=== PATIENT | female | born 1995 | race Caucasian/White ===

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

== ENCOUNTER 2018-12-18 22:44 | Emergency (ER) | payer OTHER ==
[~2018-12-18] VITALS: Ht 165.1 cm; Wt 97.7 kg
[2018-12-18 22:44] VITALS: BP 145/74
[2018-12-18] MEDS ORDERED: MOTR200T44 PO (22:51)
[2018-12-18] MEDS ORDERED: ACET-683 PO (22:51)
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
== END 2018-12-18 23:50 | disposition home or self-care (01) ==
LOC: M ED 22:44
DX: S00.83XA Contusion of other part of head, initial encounter (principal); S80.211A Abrasion, right knee, initial encounter; Y04.8XXA Assault by other bodily force, initial encounter; Y92.89 Other specified places as the place of occurrence of the external cause

== ENCOUNTER → 2019-07-12 | Outpatient (CLI) | payer BC ==
[~2019-07-12] MED LIST: ACET-683 PO; MOTR200T44 PO
[2019-07-12 17:48] LABS: HEMOGLOBIN A1c 5.3 %
== END ==
LOC: M SMT 13:52
PROVIDERS: ATTEND Obstetrics & Gynecology
DX: E28.2 Polycystic ovarian syndrome (principal); N93.9 Abnormal uterine and vaginal bleeding, unspecified

== ENCOUNTER → 2019-07-28 | Outpatient (CLI) | payer BC ==
[~2019-07-28] MED LIST changes: +CONRAY-43 43% 50ML VIAL (Q9960) As Ordered ONE; +ISOVUE-370 76% 100ML VIAL (Q9967) As Ordered ONE
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
== END ==
LOC: M RADPRO 11:53
PROVIDERS: ATTEND Obstetrics & Gynecology
DX: N97.9 Female infertility, unspecified (principal)
CPT/HCPCS: 58340; 74740; Q9967

== ENCOUNTER 2019-09-13 18:41 | Emergency (ER) | payer BC ==
[~2019-09-13] VITALS: Ht 165.1 cm; Wt 102.7 kg
[~2019-09-13 18:41] MED LIST changes: -CONRAY-43 43% 50ML VIAL (Q9960) As Ordered ONE; -ISOVUE-370 76% 100ML VIAL (Q9967) As Ordered ONE
[2019-09-13] MEDS ORDERED: LETR2.5T2 (18:48)
[2019-09-13] MEDS ORDERED: LIDOCAINE 1% SDV 5 ML VIAL DILUENT ONE (20:30)
[2019-09-13] MEDS ORDERED: AZITHROMYCIN 250 MG TAB PO ONE (20:30)
[2019-09-13] MEDS ORDERED: METOCLOPRAMIDE 10 MG TAB PO ONE (20:30)
[2019-09-13] MEDS ORDERED: cefTRIAXone SOD 250 MG VIAL (J0696) IM ONE (20:30)
[2019-09-13] MEDS ORDERED: FLAG500T PO ×2 (20:53→21:11)
[2019-09-13 20:57] VITALS: BP 144/80
[2019-09-13 21:52] LABS: CHLAMYDIA DNA AMPLIFICATION NEGATIVE (NEGATIVE); GC DNA AMPLIFICATION NEGATIVE (NEGATIVE)
[2019-09-16 09:59] LABS: HEPATITIS B SURFACE ANTIBODY NEGATIVE (POSITIVE); HEPATITIS B SURFACE ANTIGEN NEGATIVE (NEGATIVE); HEPATITIS C VIRUS ABY INDEX 0.2 INDEX (<0.8); HIV 1&2 SCREEN CENTAUR NEGATIVE (NEGATIVE)
== END 2019-09-13 21:14 | disposition home or self-care (01) ==
LOC: M ED 18:41
DX: T76.21XA Adult sexual abuse, suspected, initial encounter (principal); N76.0 Acute vaginitis; E28.2 Polycystic ovarian syndrome; F17.200 Nicotine dependence, unspecified, uncomplicated; Z79.899 Other long term (current) drug therapy
CPT/HCPCS: 36415; 81001; 86706; 86780; 86803; 87210; 87340; 87389; 87491; 87591; 96372; 99283; J0696

== ENCOUNTER 2020-07-01 12:53 | Emergency (ER) | payer BC ==
[~2020-07-01 12:53] MED LIST changes: +FLAG500T PO; +LETR2.5T2
[2020-07-01] MEDS ORDERED: LIDOCAINE 5% (LIDODERM) PATCH TD ONE (13:45)
[2020-07-01] MEDS ORDERED: KETOROLAC 60MG 2ML VIAL IM ONE (14:15)
[2020-07-01] MEDS ORDERED: methylPREDNISolone 125MG 2ML VIAL IM ONE (14:15)
--- NOTE | 2020-07-01 15:06 | REPVR ---
PROCEDURE INFORMATION: Exam: US Pelvis Complete, Transabdominal and US Duplex Artery or Vein, Ovaries, Limited Exam date and time: 07/01/2020 2:19 PM Age: 25 years old Clinical indication: Pelvic pain; Additional info: Left lower quadrant pain, HX of ovarian cysts TECHNIQUE: Imaging protocol: Real-time transabdominal pelvic ultrasound with image documentation. Real-time duplex ultrasound scan of the arterial or venous flow of the ovaries with B-mode, color Doppler flow and spectral waveform analysis. Complete Pelvis, Limited Duplex. COMPARISON: XA Hysterosalpingogram 07/28/2019 12:18 PM FINDINGS: Uterus/cervix: The uterus measures 10 x 3.9 x 7 cm. The endometrial stripe measures 0.6 cm, within normal limits. No uterine mass. Right adnexa: The right ovary measures 3.5 x 1.4 x 1.6 cm. No right adnexal mass. The right ovary demonstrates color Doppler blood flow. The right ovary demonstrates spectral Doppler blood flow with arterial waveform. No evidence of right ovarian torsion. Left adnexa: The left ovary measures 3.9 x 1.6 x 2.9 cm. No left adnexal mass. The left ovary demonstrates color Doppler blood flow. The left ovary demonstrates spectral Doppler blood flow with arterial waveform. No evidence of left ovarian torsion. Free fluid: No free intraperitoneal fluid. Bladder: The visualized portions of the urinary bladder are unremarkable. IMPRESSION: Normal pelvic ultrasound examination. Electronically signed by: Eduard Tucker On 07/01/2020 15:06:47 PM
[2020-07-01 15:36] VITALS: BP 127/56
[2020-07-01] MEDS ORDERED: **NOTE PATIENT COMMENT** MISC XX SCH (21:00)
== END 2020-07-01 15:39 | disposition home or self-care (01) ==
LOC: M ED 12:53
DX: M54.5 Low back pain (principal); E28.2 Polycystic ovarian syndrome; F17.210 Nicotine dependence, cigarettes, uncomplicated
CPT/HCPCS: 76856; 84702; 96372; 99283; J1885; J2930

== ENCOUNTER → 2022-02-19 | Outpatient (REF) | payer BC | LOC: M LAB REF 16:20 | PROVIDERS: ATTEND Physician Assistant | DX: J02.9 Acute pharyngitis, unspecified (principal) ==

== ENCOUNTER 2022-06-04 21:47 | Emergency (ER) | payer BC, OTHER ==
[~2022-06-04] VITALS: Ht 165.1 cm; Wt 95.4 kg
[2022-06-04 23:33] LABS: BASO % 0.3 % (0.0-1.0); EOS # 0.1 10^3/uL (0.0-0.5); EOS % 1.2 % (0.0-3.0); HEMATOCRIT 36.5 % (36.0-47.0); HEMOGLOBIN 12.5 g/dl (12.0-15.5); LYMPH # 3.3 10^3/uL (1.5-5.0); LYMPH % 29.1 % (24.0-44.0); MEAN CORPUSCULAR HEMOGLOBIN 32.3 pg (27.0-33.0); MEAN CORPUSCULAR HGB CONC 34.2 g/dl (32.0-36.5); MEAN CORPUSCULAR VOLUME 94.3 fl (80.0-96.0); MONO % 8.5 % (2.0-8.0); NEUTROPHILS # 6.8 10^3/uL (1.5-8.5); NEUTROPHILS % 60.5 % (36.0-66.0); PLATELET COUNT, AUTOMATED 208 10^3/uL (150-450); RED BLOOD COUNT 3.87 10^6/uL (4.00-5.40); WHITE BLOOD COUNT 11.3 10^3/uL (4.0-10.0)
[2022-06-05 00:19] LABS: BLOOD UREA NITROGEN 12 MG/DL (7-18); CALCIUM LEVEL 8.6 MG/DL (8.5-10.1); CARBON DIOXIDE LEVEL 25 MEQ/L (21-32); CHLORIDE LEVEL 108 MEQ/L (98-107); CREATININE FOR GFR 0.64 MG/DL (0.55-1.30); GLOMERULAR FILTRATION RATE > 60.0 (>60); GLUCOSE, FASTING 81 MG/DL (70-100); HCG, SERUM QUANTITATIVE 10046 MIU/ML; SODIUM LEVEL 137 MEQ/L (136-145)
[2022-06-05 02:54] VITALS: BP 114/66
== END 2022-06-05 03:56 | disposition home or self-care (01) ==
LOC: M ED 21:47
DX: O20.0 Threatened abortion (principal); O99.281 Endocrine, nutritional and metabolic diseases complicating pregnancy, first trimester; E28.2 Polycystic ovarian syndrome; Z3A.01 Less than 8 weeks gestation of pregnancy